=== PATIENT | male | born 1940 | race Native Hawaiian/Other Pacific Islander ===

== ENCOUNTER 2022-10-18 11:59 | Emergency (ER) | payer OTHER ==
[~2022-10-18] VITALS: Ht 182.9 cm; Wt 54.4 kg
[2022-10-18 11:59] VITALS: TEMP 97.8
[~2022-10-18 11:59] MED LIST: ALEVE220 MG OR; CLONIDINE0.1 MG PO; HYZAAR1 TA2 PO
[2022-10-18 12:22] LABS: PLATELET COUNT 185 K/uL (142-355)
[2022-10-18 15:15] VITALS: BP 198/112
== END 2022-10-18 15:19 | disposition short-term general hospital (02) ==
LOC: ED 12:09
PROVIDERS: Family Medicine
DX: I61.9 Nontraumatic intracerebral hemorrhage, unspecified (principal); R41.82 Altered mental status, unspecified
CPT/HCPCS: 80053; 81000; 83605; 84484; 85027; 87077; 87086; 87088; 87185; 93005; 96360; 99285